=== PATIENT | male | born 1965 | race Caucasian/White ===

== ENCOUNTER → 2016-09-12 13:45 | Outpatient (CLI) | payer BC | END | disposition home or self-care (01) | LOC: D.CT 13:45 | DX: L72.0 Epidermal cyst (principal); J01.00 Acute maxillary sinusitis, unspecified ==

== ENCOUNTER 2017-07-09 18:25 | Emergency (ER) | payer BC | END 2017-07-09 22:57 | disposition home or self-care (01) | LOC: D.ER 18:25 | DX: S61.012A Laceration without foreign body of left thumb without damage to nail, initial encounter (principal); W29.8XXA Contact with other powered hand tools and household machinery, initial encounter; Y93.89 Activity, other specified; Y92.029 Unspecified place in mobile home as the place of occurrence of the external cause ==

== ENCOUNTER 2017-11-07 05:10 | Day surgery (SDC) | payer BC ==
[~2017-11-07] VITALS: Ht 175.3 cm; Wt 95.3 kg
--- NOTE | ~2017-11-07 | OP ---
PATIENT NAME: LUCI KO JR MEDICAL RECORD: [id number] :69 LOCATION:D.OPS ADMISSION DATE: SURGEON: CRISTINA OSPINA MD DATE OF OPERATION: 11/07/2017 PREOPERATIVE DIAGNOSIS: Medial meniscus tear of the right knee. POSTOPERATIVE DIAGNOSIS: Medial meniscus tear of the right knee. PROCEDURE: Arthroscopic partial medial meniscectomy of the right knee. SURGEON: Cristina Ospina MD ANESTHESIA: General. INTRAOPERATIVE COMPLICATIONS: None. SUMMARY OF PATHOLOGIC FINDINGS: The patient has a complex tear of the posterior horn of the medial meniscus. OPERATIVE SUMMARY IN DETAIL: Appropriate orthopedic surgery consent as well as anesthetic consultation, evaluation, and clearance, the patient was brought to the operating room and placed on the operating table in supine position. After general laryngeal mask administered, tourniquet was placed about the proximal aspect of the right lower extremity. Right lower extremity was then prepped and draped in routine sterile fashion. The leg was elevated and exsanguinated, tourniquet inflated to 350 mmHg. Routine inferolateral portal was established followed by superomedial portal and inferomedial portal. Diagnostic arthroscopy did reveal the patient to have a complex tear of the posterior horn of right medial meniscus. Combination of arthroscopy, arthroscopic shaver as well as meniscotome was utilized to debride the medial meniscus back to stable meniscal elements with good residual retained meniscus. Having completed this, the knee was insufflated with 30 cc of 0.25% Marcaine with 40 mg of Depo-Medrol. Arthroscopy portals were closed in routine interrupted fashion using 4-0 Prolene. Sterile dressings were applied. Tourniquet was deflated. The patient was awakened and taken to recovery room in stable condition. All final needle and sponge counts were correct. TRANSINT:[id number] Voice Confirmation ID: [id number] DOCUMENT ID: [id number] CRISTINA OSPINA MD at 1520 CC: [id number] DICTATION DATE: 11/14/17 0852 PROJECT DEVELOPMENT COORDINATOR: 11/14/17 1033 [facility] 11/07/17 [facility] [address] [place] [address]
[2017-11-07 05:43] VITALS: BP 110/80; Ht 175.3 cm; Wt 95.3 kg
[2017-11-07] MEDS ORDERED: HYDROCODONE-APA1 TAB PO (08:56)
== END 2017-11-07 10:15 | disposition home or self-care (01) ==
LOC: D.OPS 05:10 → D.PAN 07:30 → D.OPS 10:15
DX: S83.221A Peripheral tear of medial meniscus, current injury, right knee, initial encounter (principal); M25.561 Pain in right knee; Z01.812 Encounter for preprocedural laboratory examination; K21.9 Gastro-esophageal reflux disease without esophagitis; G51.0 Bell's palsy

== ENCOUNTER 2020-12-04 21:18 | Emergency (ER) | payer OTHER ==
[2020-09-08 03:25] VITALS: Ht 175.3 cm; Wt 90.9 kg
[~2020-12-04] VITALS: Ht 175.3 cm; Wt 90.9 kg
[~2020-12-04 21:18] MED LIST: HYDROCODONE-APA1 TAB PO; MACROBID100 MG PO; ULTRAM50 MG PO
[2020-12-04 21:24] VITALS: BP 169/91
[2020-12-04] MEDS ORDERED: CEPHALEXIN500 M1 PO (22:21)
== END 2020-12-04 22:59 | disposition home or self-care (01) ==
LOC: D.ER 21:18
DX: S31.149A Puncture wound of abdominal wall with foreign body, unspecified quadrant without penetration into peritoneal cavity, initial encounter (principal); G51.0 Bell's palsy; X58.XXXA Exposure to other specified factors, initial encounter